=== PATIENT | female | born 1945 | race Caucasian/White ===

== ENCOUNTER 2018-12-21 16:05 | Outpatient (CLI) ==
--- NOTE | 2018-12-22 10:04 | DI ---
EXAM: Chest two views HISTORY: Cough COMPARISON: 07/24/2014 TECHNIQUE: Two views of the chest were performed FINDINGS: Right-sided chest port. Lungs are clear. There is no pleural effusion or pneumothorax. The heart is normal in size. The mediastinal contour is normal. There are no acute abnormalities of the bones. Surgical clips left axillary region. IMPRESSION: No acute cardiopulmonary process.
== END 2018-12-21 16:06 | disposition home or self-care (01) ==
LOC: RAD 16:05
PROVIDERS: ATTEND Internal Medicine
DX: R05 Cough (principal); R09.89 Other specified symptoms and signs involving the circulatory and respiratory systems